=== PATIENT | female | born 1955 | race Caucasian/White ===

== ENCOUNTER → 2019-07-31 12:22 | Outpatient (BNVA) | payer MEDICARE, MEDICAID, SELFPAY | PROVIDERS: Referring Provider Family Medicine; Visit Provider Psychiatry & Neurology Neurology | DX: G21.9 Secondary parkinsonism, unspecified (principal); G25.0 Essential tremor; T43.505A Adverse effect of unspecified antipsychotics and neuroleptics, initial encounter; I10 Essential (primary) hypertension; E11.9 Type 2 diabetes mellitus without complications; Z79.84 Long term (current) use of oral hypoglycemic drugs | CPT/HCPCS: 99204 ==

== ENCOUNTER → 2019-09-30 14:28 | Outpatient (BNVA) | payer MEDICARE, MEDICAID, SELFPAY | PROVIDERS: Visit Provider Psychiatry & Neurology Neurology | DX: G21.9 Secondary parkinsonism, unspecified (principal); G25.0 Essential tremor; T43.505A Adverse effect of unspecified antipsychotics and neuroleptics, initial encounter; E11.9 Type 2 diabetes mellitus without complications; Z79.4 Long term (current) use of insulin; I10 Essential (primary) hypertension | CPT/HCPCS: 99213 ==

== ENCOUNTER → 2019-10-28 14:15 | Outpatient (BNVA) | payer MEDICARE, MEDICAID, SELFPAY | PROVIDERS: Visit Provider Psychiatry & Neurology Neurology | DX: G21.9 Secondary parkinsonism, unspecified (principal); G25.0 Essential tremor; T43.505D Adverse effect of unspecified antipsychotics and neuroleptics, subsequent encounter; E11.9 Type 2 diabetes mellitus without complications; I10 Essential (primary) hypertension; Z79.4 Long term (current) use of insulin | CPT/HCPCS: 99213 ==

== ENCOUNTER → 2019-12-31 12:30 | Outpatient (BNVA) | payer MEDICARE, MEDICAID, SELFPAY | PROVIDERS: Visit Provider Psychiatry & Neurology Neurology | DX: G21.9 Secondary parkinsonism, unspecified (principal); G25.0 Essential tremor; T43.505A Adverse effect of unspecified antipsychotics and neuroleptics, initial encounter; I10 Essential (primary) hypertension; E11.9 Type 2 diabetes mellitus without complications; Z79.4 Long term (current) use of insulin | CPT/HCPCS: 99214 ==

== ENCOUNTER → 2020-03-25 12:16 | Outpatient (BNVA) | payer MEDICARE, MEDICAID, SELFPAY | PROVIDERS: Visit Provider Psychiatry & Neurology Neurology | DX: G21.9 Secondary parkinsonism, unspecified (principal); T43.501A Poisoning by unspecified antipsychotics and neuroleptics, accidental (unintentional), initial encounter; G56.22 Lesion of ulnar nerve, left upper limb; F45.8 Other somatoform disorders; E11.40 Type 2 diabetes mellitus with diabetic neuropathy, unspecified; G56.02 Carpal tunnel syndrome, left upper limb | CPT/HCPCS: 95909; 99215 ==

== ENCOUNTER → 2020-04-27 07:41 | Outpatient (BNVA) | payer MEDICARE, MEDICAID, SELFPAY | PROVIDERS: Visit Provider Psychiatry & Neurology Neurology | DX: G21.9 Secondary parkinsonism, unspecified (principal); F45.8 Other somatoform disorders; G25.0 Essential tremor; T43.505A Adverse effect of unspecified antipsychotics and neuroleptics, initial encounter | CPT/HCPCS: 99213 ==

== ENCOUNTER → 2020-06-11 07:14 | Outpatient (BNVA) | payer MEDICARE, MEDICAID, SELFPAY | PROVIDERS: Visit Provider Psychiatry & Neurology Neurology | DX: G21.9 Secondary parkinsonism, unspecified (principal); G25.0 Essential tremor; T43.505A Adverse effect of unspecified antipsychotics and neuroleptics, initial encounter; R20.2 Paresthesia of skin | CPT/HCPCS: 99213 ==

== ENCOUNTER → 2020-08-11 09:29 | Outpatient (BNVA) | payer MEDICARE, MEDICAID, SELFPAY | PROVIDERS: Visit Provider Psychiatry & Neurology Neurology | DX: F45.8 Other somatoform disorders (principal); G21.9 Secondary parkinsonism, unspecified; G25.0 Essential tremor; T43.505A Adverse effect of unspecified antipsychotics and neuroleptics, initial encounter | CPT/HCPCS: 99214 ==

== ENCOUNTER → 2020-11-11 09:51 | Outpatient (BNVA) | payer MEDICARE, MEDICAID, SELFPAY | PROVIDERS: Visit Provider Psychiatry & Neurology Neurology | DX: G21.9 Secondary parkinsonism, unspecified (principal); G25.0 Essential tremor; T43.505A Adverse effect of unspecified antipsychotics and neuroleptics, initial encounter; F45.8 Other somatoform disorders | CPT/HCPCS: 99214 ==

== ENCOUNTER → 2021-03-04 09:31 | Outpatient (BNVA) | payer MEDICARE, MEDICAID, SELFPAY | PROVIDERS: Visit Provider Psychiatry & Neurology Neurology | DX: G21.9 Secondary parkinsonism, unspecified (principal); G25.0 Essential tremor; T43.505A Adverse effect of unspecified antipsychotics and neuroleptics, initial encounter; R20.2 Paresthesia of skin; I10 Essential (primary) hypertension; E11.9 Type 2 diabetes mellitus without complications | CPT/HCPCS: 99213 ==

== ENCOUNTER → 2021-09-06 12:08 | Outpatient (BNVA) | payer MEDICARE, MEDICAID, SELFPAY | PROVIDERS: Visit Provider Psychiatry & Neurology Neurology | DX: G21.9 Secondary parkinsonism, unspecified (principal); G25.0 Essential tremor; T43.505A Adverse effect of unspecified antipsychotics and neuroleptics, initial encounter; E11.42 Type 2 diabetes mellitus with diabetic polyneuropathy | CPT/HCPCS: 99214 ==

== ENCOUNTER → 2021-10-20 13:08 | Outpatient (BNVA) | payer MEDICARE, MEDICAID, SELFPAY | PROVIDERS: Visit Provider Psychiatry & Neurology Neurology | DX: G21.9 Secondary parkinsonism, unspecified (principal); T43.505A Adverse effect of unspecified antipsychotics and neuroleptics, initial encounter; G62.9 Polyneuropathy, unspecified; F45.8 Other somatoform disorders; R53.1 Weakness; R40.4 Transient alteration of awareness; I10 Essential (primary) hypertension | CPT/HCPCS: 99215 ==

== ENCOUNTER → 2021-12-02 11:09 | Outpatient (BNVA) | payer MEDICARE, MEDICAID, SELFPAY | PROVIDERS: PCP Family Medicine; Referring Provider Family Medicine; Visit Provider Psychiatry & Neurology Neurology | DX: G21.9 Secondary parkinsonism, unspecified; T43.505A Adverse effect of unspecified antipsychotics and neuroleptics, initial encounter; F45.8 Other somatoform disorders; G62.9 Polyneuropathy, unspecified; E11.9 Type 2 diabetes mellitus without complications; I10 Essential (primary) hypertension | CPT/HCPCS: 99214 ==

== ENCOUNTER → 2022-01-24 12:25 | Outpatient (BNVA) | payer MEDICARE, MEDICAID, SELFPAY | PROVIDERS: PCP Family Medicine; Referring Provider Family Medicine; Visit Provider Psychiatry & Neurology Neurology | DX: G21.9 Secondary parkinsonism, unspecified (principal); G25.0 Essential tremor; T43.505A Adverse effect of unspecified antipsychotics and neuroleptics, initial encounter; F25.9 Schizoaffective disorder, unspecified; F31.9 Bipolar disorder, unspecified; F45.8 Other somatoform disorders; E11.42 Type 2 diabetes mellitus with diabetic polyneuropathy | CPT/HCPCS: 99215 ==

== ENCOUNTER → 2022-03-07 12:50 | Outpatient (BNVA) | payer MEDICARE, MEDICAID, SELFPAY | PROVIDERS: PCP Family Medicine; Referring Provider Family Medicine; Visit Provider Psychiatry & Neurology Neurology | DX: G21.9 Secondary parkinsonism, unspecified (principal); G25.0 Essential tremor; T43.505A Adverse effect of unspecified antipsychotics and neuroleptics, initial encounter; F45.8 Other somatoform disorders; G62.9 Polyneuropathy, unspecified; E11.9 Type 2 diabetes mellitus without complications; I10 Essential (primary) hypertension | CPT/HCPCS: 99214 ==

== ENCOUNTER → 2022-05-03 11:02 | Outpatient (BNVA) | payer MEDICARE, MEDICAID, SELFPAY | PROVIDERS: PCP Family Medicine; Referring Provider Family Medicine; Visit Provider Psychiatry & Neurology Neurology | DX: G21.9 Secondary parkinsonism, unspecified (principal); G25.0 Essential tremor; T43.505A Adverse effect of unspecified antipsychotics and neuroleptics, initial encounter; G62.9 Polyneuropathy, unspecified; F45.8 Other somatoform disorders; I10 Essential (primary) hypertension; E11.9 Type 2 diabetes mellitus without complications | CPT/HCPCS: 99214 ==